=== PATIENT | male | born 1975 | race Caucasian/White ===

== ENCOUNTER 2024-08-27 15:51 | Emergency (ER) | payer SELFPAY ==
[~2024-08-27] VITALS: Ht 332.7 cm; Wt 91.0 kg
[2024-08-27 15:54] VITALS: O2SAT 100
[2024-08-28 01:02] VITALS: BP 112/64; PULSE 71; RESP 14; TEMP 36.89184; O2SAT 98
== END 2024-08-28 03:00 | disposition home or self-care (01) ==
LOC: ER 15:51
DX: R44.3 Hallucinations, unspecified (principal)
CPT/HCPCS: 80305; 99283